=== PATIENT | male | born 1970 | race Caucasian/White ===

== ENCOUNTER 2018-10-10 11:36 | Emergency (ER) | payer SELFPAY ==
[2018-10-10 11:37] VITALS: BP 120/67; PULSE 102; RESP 18; TEMP 37.2; O2SAT 96; BMI 19.9
--- NOTE | 2018-10-10 11:54 | CT_ITS ---
STUDY: CT ABDOMEN AND PELVIS WITHOUT CONTRAST REASON FOR EXAM: Male, 47 years old. Right renal mass with abdominal pain RADIATION DOSAGE (If Supplied By Facility): CTDIvol = ( 9.84 ) mGy, DLP = ( 1101.14 ) mGycm TECHNIQUE: Transaxial images were obtained from the dome of the diaphragm to the symphysis pubis without oral contrast, and without intravenous contrast. Sagittal and coronal images were reconstructed. Individualized dose optimization techniques were used for this CT. COMPARISON: None. FINDINGS: There are numerous ill-defined, irregular noncalcified nodules in the bilateral lung bases, only partially visualized. Retrocrural adenopathy with central low density as well as left infrahilar/paratracheal necrotic lymph node also identified. The visualized portions of the heart are within normal limits. Very small subcentimeter low-density lesions of the liver are likely hepatic cysts. No solid hepatic masses are seen. Normal gallbladder and extrahepatic biliary system. Normal spleen. Normal pancreas. Normal bilateral adrenal glands. Large heterogeneous mass of the anterior inferior right kidney has indistinct margins but measures approximately 8.4 x 12.2 cm with some heterogeneous enhancement along the boundary with normal kidney suggesting invasion. There is mild right hydronephrosis. Extensive adenopathy of the retroperitoneum identified with multiple lymph nodes in the retroperitoneum showing central low density suggesting necrosis. The david mass measures up to 3.0 x 4.7 cm on image 47. There is also a 1.6 x 1.9 cm centrally low density nodule inferior and posterior to the kidney, lateral to the right psoas muscle. Mild pelvic free fluid identified. There is displacement of the IVC due to retroperitoneal adenopathy but the suprarenal IVC appears to enhance normally. Reticulation in the pararenal fascia is asymmetric to the left side. Normal left kidney. Normal visualized stomach. Normal small intestine. Normal colon. The appendix is visualized and appears normal. Normal abdominal aorta. Normal inferior vena cava. Normal retroperitoneum. Normal urinary bladder. Normal abdominal wall. Normal osseous structures. CT/Abdomen/Pelvis W IV Cont ONLY IMPRESSION: 1. Large mass/neoplasm of the right kidney with perirenal and retroperitoneal adenopathy/metastasis. Pulmonary nodules, retrocrural adenopathy and left hilar/peritracheal adenopathy suggesting metastasis. 2. Moderate right hydronephrosis (due to mass effect from renal mass). 3. Mild pelvic free fluid. Electronically Signed: Braulio Casey MD at 13:21 EDT , Service support ,
--- NOTE | 2018-10-10 11:57 | ED.DCSUM_ITS ---
History of Present Illness Narrative: 47-year-old male with no documented past medical history presents with concern for right-sided mass and abdominal pain. States is been present for the past 3 months. States he has had significant decrease in appetite. States he was seen at [facility] without imaging 1 month ago. Patient also states that he has swelling and pain in his right scrotum. States is also been present for the past 3 months. Denies any nausea, vomiting, constipation, diarrhea. States the pain is aching in nature. Denies any trauma. Denies any penile discharge. Denies concern for STDs. <Martin Diamond - Last Filed: 10/10/18 17:41> <Francia Moore - Last Filed: 10/10/18 22:16> Chief Complaint: Abd Pain Past Medical History Prior records reviewed: Yes Smoking Status: Current every day smoker <Martin Diamond - Last Filed: 10/10/18 17:41> <Francia Moore - Last Filed: 10/10/18 22:16> - Allergies and Home Meds Allergies/Adverse Reactions: Allergies aripiprazole [From Abilify] Allergy (Verified 10/10/18 11:40) Other ALL MEDS--PER PT Adverse Reaction (Uncoded 10/10/18 11:40) Other Primary Care Physician: NOT,DEFINED [NON-STAFF] - Review of Systems General: Denies: Chills, Fever, Sweats Eyes: Denies: Visual changes - bilaterally, Diplopia ENT: Denies: Rhinorrhea, Sore throat Cardiovascular: Denies: Chest pain, Palpitations Respiratory: Denies: Dyspnea, Cough, Dyspnea on exertion Gastrointestinal: Reports: Abdominal pain. Denies: Nausea, Vomiting, Diarrhea, Melena, Hematochezia Genitourinary: Reports: - - Right scrotal pain. Denies: Dysuria, Hematuria, Frequency Musculoskeletal: Denies: Back pain, Extremity Pain Skin: Denies: Rash, Wounds Neurological: Denies: Headache, Weakness, Numbness <Martin Diamond - Last Filed: 10/10/18 17:41> Physical Exam Vital Signs/Narrative: Vital Signs Temp Pulse Resp BP Pulse Ox 10/10/18 11:37 99 F 102 H 18 120/67 96 General: Well nourished, Cachectic, No Acute Distress Head: Normocephalic, Atraumatic Eyes: Perrl, EOMI ENT: Moist mucous membranes, No rhinorrhea Neck: Supple, Nontender Cardiovascular: Regular rate, Regular rhythm, No murmurs Respiratory: No distress, CTA bilaterally, Chest nontender Abdomen: Nondistended, Normal bowel sounds, Tender, Guarding - Mass like swelling in the right mid-abdomen. : - - Swelling in the rigth scrotum. TTP. Back: Nontender, Normal Inspection Extremities: Nontender, No edema Skin: Normal color, No rash Neurological: Alert, Oriented x3, Cranial nerves II-XII grossly intact, Normal Strength, Normal Sensation Psychological: Normal affect, Normal Mood <Martin Diamond - Last Filed: 10/10/18 17:41> Vital Signs/Narrative: Vital Signs Pulse Resp BP 10/10/18 16:59 86 16 117/70 10/10/18 14:21 98 16 128/78 H <Francia Moore - Last Filed: 10/10/18 22:16> Diagnostic/Tx/Re-eval Impressions Abdomen/Pelvis CT 10/10/18 11:54 IMPRESSION: 1. Large mass/neoplasm of the right kidney with perirenal and retroperitoneal adenopathy/metastasis. Pulmonary nodules, retrocrural adenopathy and left hilar/peritracheal adenopathy suggesting metastasis. 2. Moderate right hydronephrosis (due to mass effect from renal mass). 3. Mild pelvic free fluid. Electronically Signed: Braulio Casey MD at 13:21 EDT , Service support , Testicular Ultrasound 10/10/18 12:00 IMPRESSION: 1. Normal bilateral testicles. 2. Right hydrocele. 3. Bilateral varicocele 4. Bilateral epididymal cysts. Electronically Signed: Braulio Casey MD at 14:15 EDT , Service support , 10/10/18 11:54 Abdomen/Pelvis W IV Cont ONLY [CT] Stat 10/10/18 12:00 US Testicular [Testicular with Arterial Flow] [US] Stat Laboratory Results 10/10/18 10/10/18 10/10/18 12:00 12:00 14:20 WBC 9.6 RBC 4.43 L Hgb 11.2 L Hct 34.7 L MCV 78.3 L MCH 25.3 L MCHC 32.3 RDW Std Deviation 38.5 RDW Coeff of Juli 13.4 Plt Count 455 H MPV 9.1 Immature Gran % (Auto) 0.500 Neut % (Auto) 79.3 H Lymph % (Auto) 8.9 L Bureau % (Auto) 9.6 Eos % (Auto) 1.4 Baso % (Auto) 0.3 Absolute Neuts (auto) 7.6 Absolute Lymphs (auto) 0.86 Nucleated RBC % 0 Sodium 135 L Potassium 4.0 Chloride 102 Carbon Dioxide 28.0 Anion Gap 5 BUN 11 Creatinine 1.35 H Estim Creat Clear Calc 64.48 Est GFR (MDRD) Af Amer 73 Est GFR (MDRD) Non-Af 60 BUN/Creatinine Ratio 8.1 L Glucose 93 Calcium 10.1 Total Bilirubin 0.30 AST 33 ALT 21 Alkaline Phosphatase 103 Total Protein 7.5 Albumin 2.6 L Globulin 4.9 H Albumin/Globulin Ratio 0.5 L Lipase 59 L Urine Color Yellow Urine Clarity Clear Urine pH 6.0 Ur Specific [place] 1.015 Urine Protein 30 H Urine Glucose (UA) Normal Urine Ketones Negative Urine Occult Blood 50 H Urine Nitrite Negative Urine Bilirubin Negative Urine Urobilinogen Normal Ur Leukocyte Esterase Negative Urine RBC 0-5 SEEN Urine WBC 0 SEEN Ur Squamous Epith Cells 0-5 SEEN Urine Bacteria 0 SEEN Urine Mucus 0 SEEN - Medical Decision Making Patient appears cachectic. Vital signs been normal limits. Tender abdominal exam. Lab work fairly unremarkable. CT shows concern for a large renal mass. This is concerning to be neoplastic in nature. Ultrasound of the scrotum shows hydrocele as well as varicocele. There is hydronephrosis of the right kidney as well as a mild elevation in creatinine. Patient has pain control with morphine and fentanyl. Spoke at length with the patient as well as his family and they are agreeable with transfer to a tertiary facility where urologic evaluation could be performed. Spoke to general transfer line and had accepting physician Dr. Conroy. Transferred in stable condition. <Martin Diamond - Last Filed: 10/10/18 17:41> - Medical Decision Making Patient presents with right-sided abdominal pain and mass over the past 3 months. He does report weight loss. Laboratory and imaging studies reveal evidence of renal carcinoma. We do not have urology coverage available this weekend. Patient has been accepted in transfer at [facility]. <Francia Moore - Last Filed: 10/10/18 22:16> ED Disposition <Martin Diamond - Last Filed: 10/10/18 17:41> <Francia Moore - Last Filed: 10/10/18 22:16> - Plan for ED Patient: Disposition: [facility] Diagnosis: Renal carcinoma Referrals: NOT,DEFINED [NON-STAFF] -
--- NOTE | 2018-10-10 12:00 | US_ITS ---
STUDY: SCROTUM ULTRASOUND REASON FOR EXAM: Male, 47 years old. Right scrotal pain TECHNIQUE: Ultrasound evaluation of the scrotum was performed with color Doppler and static bennett-scale imaging. COMPARISON: None. FINDINGS: RIGHT TESTICLE INTRATESTICULAR: There is a normal size of the right testicle. The right testicle measures 4.2x3.2x2.3 cm. There is a homogenous echotexture. There is normal arterial and normal venous vascularity. There is no demonstrated right testicular mass or cyst. EXTRATESTICULAR: The epididymis is normal in size. The epididymis head measures 1.5 cm. There is normal vascularity of the epididymis. There is a well-defined cystic structure within the epididymis, without internal echoes, consistent with an epididymal cyst. There is a moderate size hydrocele. There are prominent extratesticular veins consistent with a varicocele. There is no demonstrated extratesticular mass or cyst. LEFT TESTICLE INTRATESTICULAR: There is a normal size of the left testicle. The left testicle measures 4.1x2.8x2.2 cm. There is a homogenous echotexture. There is normal arterial and normal venous vascularity. There is no demonstrated left testicular mass or cyst. EXTRATESTICULAR: The epididymis is normal in size. The epididymis head measures 1.3 cm. There is normal vascularity of the epididymis. There is a well-defined cystic structure within the epididymis, without internal echoes, consistent with an epididymal cyst. There is no demonstrated hydrocele. There are prominent extratesticular veins consistent with a varicocele. There is no demonstrated extratesticular mass or cyst. US/Testicular with Arterial Flow IMPRESSION: 1. Normal bilateral testicles. 2. Right hydrocele. 3. Bilateral varicocele 4. Bilateral epididymal cysts. Electronically Signed: Braulio Casey MD at 14:15 EDT , Service support ,
[2018-10-10 12:20] LABS: Absolute Lymphocyte Count 0.86 X10^3/uL (0.83-4.51); Absolute Neutrophil Count 7.6 X10^3/uL (2.0-7.7); Basophil# 0.03 X10^3/uL; Basophil% 0.3 % (0-1); Eosinophil# 0.13 X10^3/uL; Eosinophils% 1.4 % (0-5); Hematocrit 34.7 % (40-54); Hemoglobin 11.2 g/dL (13.0-16.5); Lymphocyte # 0.86 X10^3/ul (4.0); Lymphocyte % 8.9 % (19-41); Mean Corp Hgb Conc 32.3 g/dL (32-36); Mean Corpuscular Hgb 25.3 pg (27.0-32.0); Mean Corpuscular Volume 78.3 fL (80-94); Mean Platelet Vol. 9.1 fl (6.2-12.0); Monocyte# 0.92 X10^3/uL; Monocyte% 9.6 % (0-10); NRBC Flagged by Analyzer 0 % (0-5); Neutrophil # 7.63 X10^3/uL (2.7-7.7); Neutrophil % 79.3 % (47-70); Platelet Count 455 K/mm3 (150-450); RBC Distribution Width CV 13.4 % (11.6-14.6); RBC Distribution Width SD 38.5 fl (35.1-43.9); Red Blood Count 4.43 M/mm3 (4.6-6.2); White Blood Count 9.6 K/mm3 (4.4-11.0)
[2018-10-10] MEDS: Morphine 4 MG/ML Syringe IV (12:29)
[2018-10-10] MEDS: 0.9% Normal Saline 1,000 ML 1000 ML IV (12:29)
[2018-10-10 12:36] LABS: ALB/GLOB Ratio 0.5 RATIO (0.9-2.4); AST(SGOT) 33 U/L (15-37); Alanine Aminotransfer ALT/SGPT 21 U/L (16-61); Albumin, Serum 2.6 g/dL (3.2-5.0); Alkaline Phosphatase 103 U/L (45-117); Anion Gap 5 (5-15); BUN 11 mg/dL (7-18); BUN/Creat Ratio 8.1 RATIO (10-20); Calcium,Total 10.1 mg/dL (8.5-10.1); Chloride 102 mmol/L (98-107); Creatinine, Serum 1.35 mg/dL (0.70-1.30); EST Glomerular Filtration Rate 60 mL/min (>60); Est Glom Filt Rate - Afr Amer 73 mL/min (>60); Estimated Creatinine Clearance 64.48 ml/min; Globulin 4.9 g/dL (2.2-4.2); Glucose 93 mg/dL (74-106); Lipase 59 U/L (73-393); Protein, Total 7.5 g/dL (6.4-8.2); Sodium Level 135 mmol/L (136-145)
--- NOTE | 2018-10-10 14:13 | NURSING ---
CALLED [facility] TALKED TO BASHIR
[2018-10-10 14:21] VITALS: BP 128/78; PULSE 98; RESP 16
[2018-10-10 14:31] LABS: Bacteria 0 SEEN /hpf (None Seen); Mucous, Urine 0 SEEN /hpf (<or=2+); White Blood Cells 0 SEEN /hpf (0-5)
[2018-10-10 14:32] LABS: Color, Urine Yellow (Yellow); Glucose, Dipstick Normal (Normal); Ketone-Dipstick Negative (Negative); Leukocyte Esterase-Dipstick Negative /ul (Negative); Nitrite-Dipstick Negative (Negative); Occult Blood-Urine 50 /ul (Negative); Protein-Dipstick 30 mg/dl (Negative); Specific Gravity, Urine 1.015 (1.002-1.030); Urine Bilirubin Dipstick Negative (Negative); Urine Clarity Clear (Clear); Urine Urobilinogen Normal (Normal)
[2018-10-10 14:38] LABS: Red Blood Cells-Urine 0-5 SEEN /hpf (0-5); Squamous Epithelial Cells - UA 0-5 SEEN /hpf (0-5)
--- NOTE | 2018-10-10 15:36 | NURSING ---
[facility] ROOM 5105 NURSE TO NURSE [phone] ROSAS
--- NOTE | 2018-10-10 15:53 | NURSING ---
[facility]
[2018-10-10] MEDS: fentaNYL 100 MCG/2 ML Ampul 50 MCG IV (16:58)
[2018-10-10 16:59] VITALS: BP 117/70; PULSE 86; RESP 16
== END 2018-10-10 17:12 | disposition short-term general hospital (02) ==
LOC: ED 12:23
PROVIDERS: Emergency Provider Emergency Medicine
DX: C64.1 Malignant neoplasm of right kidney, except renal pelvis (principal); N43.3 Hydrocele, unspecified; I86.1 Scrotal varices; F17.200 Nicotine dependence, unspecified, uncomplicated
CPT/HCPCS: 74177; 76870; 80053; 81001; 83690; 85025; 93976; 96361; 96374; 96375; 99284; J7030; Q9967; A4216